=== PATIENT | male | born 1950 | race Caucasian/White ===

== ENCOUNTER 2021-01-26 09:16 | Inpatient (IN) | payer OTHER, MEDICARE ==
[~2021-01-26] VITALS: Ht 175.3 cm; Wt 71.7 kg
[2021-01-26 09:17] VITALS: BP 136/53
[2021-01-26 10:40] LABS: ABSOLUTE NEUTROPHILS 5.1 thou/uL (1.4-8.2); BASOPHILS 0.2 % (0.0-2.0); HEMATOCRIT 48.6 % (42.0-52.0); HEMOGLOBIN 16.4 gm/dL (14.0-18.0); LYMPHOCYTES 16.4 % (24.0-44.0); MCH 30.5 pg (26.0-34.0); MCHC 33.8 g/dL (28.0-37.0); MCV 90.4 fL (80.0-100.0); MONOCYTES 6.6 % (1.0-8.0); PLATELET COUNT 125 thou/uL (150-400); POLYS 76.8 % (36.0-66.0); RBC 5.38 mil/uL (4.50-6.00); RDW 12.7 % (10.5-14.5); WBC 6.7 thou/uL (4.0-11.0)
[2021-01-26 10:45] LABS: CALCIUM 8.4 mg/dL (8.5-10.1); CREATININE 1.1 mg/dL (0.7-1.3); POTASSIUM 4.2 mmol/L (3.5-5.1)
[2021-01-26 10:51] LABS: ALBUMIN 3.2 g/dL (3.4-5.0); TOTAL BILIRUBIN 0.6 mg/dL (0.2-1.0); TOTAL PROTEIN 6.5 g/dL (6.4-8.2)
[2021-01-26 12:35] VITALS: BP 138/66
[2021-01-26 13:10] LABS: BE(vivo) 2.7 mmol/L (-2 to +3); HCO3 24.7 mmol/L (22.0-26.0); PCO2 31.4 mmHg (35.0-45.0); PO2 74.9 mmHg (80.0-100.0); pH 7.513 (7.360-7.450); sO2 96.3 % (92.0-98.0)
--- NOTE | 2021-01-26 13:52 | EKG ---
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
[2021-01-26 21:59] VITALS: BP 132/68
[2021-01-26 22:30] VITALS: BP 126/64
[2021-01-26] MEDS ORDERED: CARTIA XT240 M1 PO (23:14)
[2021-01-26] MEDS ORDERED: PROTONIX 20 MG20 MG PO (23:15)
[2021-01-26] MEDS ORDERED: CLARITIN10 M2 PO (23:15)
[2021-01-26] MEDS ORDERED: ZETIA10 MG (23:16)
[2021-01-27 03:24] VITALS: BP 114/101
[2021-01-27 05:29] LABS: ABSOLUTE NEUTROPHILS 3.4 thou/uL (1.4-8.2); BASOPHILS 0.4 % (0.0-2.0); HEMATOCRIT 48.5 % (42.0-52.0); HEMOGLOBIN 16.9 gm/dL (14.0-18.0); LYMPHOCYTES 22.2 % (24.0-44.0); MCH 30.7 pg (26.0-34.0); MCHC 34.7 g/dL (28.0-37.0); MCV 88.5 fL (80.0-100.0); PLATELET COUNT 124 thou/uL (150-400); POLYS 70.4 % (36.0-66.0); RBC 5.48 mil/uL (4.50-6.00); RDW 12.6 % (10.5-14.5); WBC 4.8 thou/uL (4.0-11.0)
[2021-01-27 05:51] LABS: ALBUMIN 2.8 g/dL (3.4-5.0); CALCIUM 8.3 mg/dL (8.5-10.1); CREATININE 0.9 mg/dL (0.7-1.3); MAGNESIUM 2.4 mg/dL (1.8-2.4); POTASSIUM 3.5 mmol/L (3.5-5.1); TOTAL BILIRUBIN 0.4 mg/dL (0.2-1.0); TOTAL PROTEIN 6.9 g/dL (6.4-8.2)
[2021-01-27 07:46] VITALS: BP 130/82
[2021-01-27 15:57] VITALS: BP 136/78
[2021-01-27 20:54] VITALS: BP 149/81
[2021-01-28 04:07] VITALS: BP 126/79
--- NOTE | 2021-01-28 04:58 | HC ---
[facility] [place] [address] CONSULTATION Name: STEPH OLEARY Room #: 357-P ADM IN M.R.#: [id number] Admission: 01/26/21 Attend Phys: Marcelino South MD Discharge: Date of : 52 Report #: [id number] THIS REPORT FOR: cc: FAM - Family physician unknown FAM - Family physician unknown Scott Ogden MD ~ DATE OF SERVICE: 01/27/2021 Infectious Disease Consultation ATTENDING PHYSICIAN: Dr. Marcelino South. REASON FOR EVALUATION: COVID-19 infection, complicated by pneumonitis and respiratory failure. HISTORY OF PRESENT ILLNESS: The patient examined. This is a 70-year-old gentleman with history of atrial fibrillation, otherwise reasonably healthy, who actually came to visit his father from [place], who was diagnosed with COVID. He became more dyspneic over the last two days prior to his admission. He noted associated cough that was essentially nonproductive. He denies significant systemic illness as fevers, chills. He did have a diminished appetite. Had some mild GI related complaints with nausea, although no emesis. He was evaluated in the emergency room, was confirmed to have positive COVID test. Chest x-ray, patchy infiltrates. Lactic acid 1.7. ABGs: pH 7.513, pCO2 of 31.4, pO2 of 74.9 on 4 liters. Blood cultures collected at time of admission are sterile thus far. He was empirically started on therapy with azithromycin, ceftriaxone and remdesivir in addition to corticosteroids. ALLERGIES: None known. MEDICATIONS: Include ceftriaxone, ascorbic acid, famotidine, budesonide, thiamine, zinc sulfate, cholecalciferol, methylprednisolone, remdesivir, azithromycin, and ceftriaxone. PAST MEDICAL HISTORY: Atrial fibrillation and high cholesterol. SOCIAL HISTORY: Former smoker, occasional ethanol. No illicit drug use. FAMILY HISTORY: Noncontributory. REVIEW OF SYSTEMS: Otherwise, unremarkable. PHYSICAL EXAMINATION: GENERAL: He is alert, cooperative. He is in [id number]-th-zhijkfvt distress. He is generally lucid. VITAL SIGNS: Temperature 98.6, pulse 83, respirations 18, blood pressure [facility] [address] [place] [address] CONSULTATION Name: STEPH OLEARY Room #: 357-P [facility] IN M.R.#: [id number] Admission: 01/26/21 Attend Phys: Marcelino South MD Discharge: Date of : 52 Report #: [id number] 130/82. SKIN: Warm, dry. No rashes. HEENT: Normocephalic. Extraocular muscles intact. Nasal cannula in place. NECK: LUNGS: Scattered coarse breath sounds. HEART: Irregular, do not appreciate a murmur. ABDOMEN: Soft, nontender. EXTREMITIES: No cyanosis. GENITOURINARY AND RECTAL: Deferred. LABORATORY DATA: As described above. Electrolytes: Sodium 145, potassium 3.5, chloride 106, bicarbonate is 26, anion gap of 13, BUN and creatinine 25 and 0.9, glucose of 148, AST 44, ALT of 45. Albumin 2.8, total protein 6.9. Estimated GFR of 84. CBC: White count 4.8, H and H 16.9 and 48.5, platelets of 124. Lactic acid 1.7. ABGs: pH 7.513, pCO2 of 31.4, pO2 of 74.9 on 4 liters. ASSESSMENT AND PLAN: Coronavirus infection, complicated by pneumonitis and respiratory failure. PLAN: We will continue current approach. We will add ivermectin. I think we will hold off on Actemra at this point. Continue remdesivir and corticosteroids. Prefer ceftriaxone or azithromycin. We will continue that and see how he does clinically. <ELECTRONICALLY SIGNED> By: Scott Ogden MD 01/28/21 0458 [id number] 1131 Scott Ogden MD /nt
[2021-01-28 07:22] VITALS: BP 138/80
[2021-01-28 15:29] VITALS: BP 134/70
[2021-01-28 19:15] VITALS: BP 135/73
[2021-01-29 06:00] VITALS: BP 134/84
[2021-01-29 08:00] VITALS: BP 133/74
[2021-01-29 11:29] LABS: ABSOLUTE NEUTROPHILS 8.1 thou/uL (1.4-8.2); BASOPHILS 0.5 % (0.0-2.0); MCH 29.9 pg (26.0-34.0); MCHC 33.1 g/dL (28.0-37.0); MCV 90.2 fL (80.0-100.0); POLYS 89.5 % (36.0-66.0); RDW 14.8 % (10.5-14.5)
[2021-01-29 11:55] LABS: HEMOGLOBIN 11.9 gm/dL (14.0-18.0); PLATELET COUNT 229 thou/uL (150-400)
[2021-01-29 12:41] LABS: ALBUMIN 2.4 g/dL (3.4-5.0); CALCIUM 7.8 mg/dL (8.5-10.1); CREATININE 0.8 mg/dL (0.7-1.3); POTASSIUM 3.2 mmol/L (3.5-5.1); TOTAL BILIRUBIN 0.6 mg/dL (0.2-1.0); TOTAL PROTEIN 5.9 g/dL (6.4-8.2)
[2021-01-29 12:44] LABS: BE(vivo) 4.4 mmol/L (-2 to +3); PCO2 30.7 mmHg (35.0-45.0); PO2 63.7 mmHg (80.0-100.0); pH 7.545 (7.360-7.450); sO2 94.9 % (92.0-98.0)
[2021-01-29 16:42] VITALS: BP 131/84
[2021-01-29 19:27] VITALS: BP 137/74
[2021-01-30 05:13] VITALS: BP 142/79
[2021-01-30 05:47] LABS: ALBUMIN 2.4 g/dL (3.4-5.0); CALCIUM 7.4 mg/dL (8.5-10.1); CREATININE 0.8 mg/dL (0.7-1.3); DIRECT BILIRUBIN 0.2 mg/dL (<0.1-0.2); POTASSIUM 3.6 mmol/L (3.5-5.1); TOTAL BILIRUBIN 0.5 mg/dL (0.2-1.0); TOTAL PROTEIN 5.7 g/dL (6.4-8.2)
[2021-01-30 07:11] VITALS: BP 148/80
[2021-01-30 15:20] VITALS: BP 149/83
[2021-01-30 16:06] LABS: HIV ANTIBODY Non Reactive (Non Reactive)
[2021-01-30 16:40] LABS: BE(vivo) 4.2 mmol/L (-2 to +3); HCO3 25.5 mmol/L (22.0-26.0); PCO2 29.5 mmHg (35.0-45.0); PO2 56.6 mmHg (80.0-100.0); pH 7.554 (7.360-7.450); sO2 93.2 % (92.0-98.0)
[2021-01-30 19:30] VITALS: BP 161/87
[2021-01-31 03:55] VITALS: BP 156/90
[2021-01-31 07:36] VITALS: BP 149/91
[2021-01-31 15:32] VITALS: BP 156/85
[2021-01-31 19:22] VITALS: BP 152/78
[2021-02-01 04:08] VITALS: BP 130/71
[2021-02-01 07:38] VITALS: BP 141/93
[2021-02-01 11:58] VITALS: BP 144/83
[2021-02-01 18:15] VITALS: BP 144/82
[2021-02-01 19:30] VITALS: BP 151/92
[2021-02-02 03:30] VITALS: BP 140/79
[2021-02-02 07:08] VITALS: BP 154/96
[2021-02-02 11:12] VITALS: BP 136/79
[2021-02-02 15:08] VITALS: BP 131/83
[2021-02-02 21:03] VITALS: BP 143/83
[2021-02-03 04:52] VITALS: BP 147/97
[2021-02-03 07:13] VITALS: BP 129/86
[2021-02-03 15:16] VITALS: BP 131/79
[2021-02-03 21:05] VITALS: BP 135/90
[2021-02-04 03:55] VITALS: BP 157/93
[2021-02-04 05:17] LABS: HEMATOCRIT 43.6 % (42.0-52.0); HEMOGLOBIN 14.8 gm/dL (14.0-18.0); MCH 30.6 pg (26.0-34.0); PLATELET COUNT 341 thou/uL (150-400); RBC 4.84 mil/uL (4.50-6.00); RDW 12.5 % (10.5-14.5); WBC 14.7 thou/uL (4.0-11.0)
[2021-02-04 06:19] LABS: ALBUMIN 2.5 g/dL (3.4-5.0); CALCIUM 7.8 mg/dL (8.5-10.1); CREATININE 0.9 mg/dL (0.7-1.3); MAGNESIUM 2.4 mg/dL (1.8-2.4); PHOSPHORUS 4.5 mg/dL (2.5-4.9); POTASSIUM 4.7 mmol/L (3.5-5.1); TOTAL BILIRUBIN 0.7 mg/dL (0.2-1.0); TOTAL PROTEIN 5.4 g/dL (6.4-8.2)
[2021-02-04 07:19] LABS: ABSOLUTE NEUTROPHILS 13.4 thou/uL (1.4-8.2); PLATELET ESTIMATE NORMAL
[2021-02-04 08:00] VITALS: BP 126/83
[2021-02-04 12:34] VITALS: BP 130/83
[2021-02-04 19:16] VITALS: BP 121/79
[2021-02-05 04:42] VITALS: BP 140/80
[2021-02-05 07:14] VITALS: BP 136/87
--- NOTE | 2021-02-05 07:27 | EKG ---
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: : 1950 Requested By: Sophie Diaz Order Number: [id number] MD: Goldy Mendoza Measurements Intervals [place] Rate: 76 P: 41 OR: 127 QRS: -63 QRSD: 95 T: 1 QT: 378 QTc: 426 Interpretive Statements Sinus rhythm RSR' in V1 or V2, right VCD or RVH Borderline T abnormalities, inferior leads Compared to ECG 01/26/2021 09:27:32 Right ventricular hypertrophy now present RSR' in V1 or V2 now present T-wave abnormality now present Electronically Signed On 02-05-2021 7:27:26 CDT by Goldy Mendoza [email or web address] <ELECTRONICALLY SIGNED> By: Goldy Mendoza MD, [facility] 02/05/21 0727 1129 1129 Goldy Mendoza MD, [facility] /EPI
[2021-02-05 15:21] VITALS: BP 138/97
[2021-02-05 19:30] VITALS: BP 146/91
[2021-02-06 03:54] VITALS: BP 124/87
[2021-02-06 08:01] VITALS: BP 136/84
[2021-02-06 15:15] VITALS: BP 143/87
[2021-02-06 19:40] VITALS: BP 142/83
[2021-02-07 04:44] VITALS: BP 134/82
[2021-02-07 07:17] VITALS: BP 130/79
[2021-02-07 16:45] VITALS: BP 150/74
[2021-02-07 19:20] VITALS: BP 134/72
[2021-02-08 05:07] VITALS: BP 128/102
[2021-02-08 08:01] VITALS: BP 134/88
[2021-02-08] MEDS ORDERED: PREDNISONE 20 M20 M1 PO (14:05)
[2021-02-08] MEDS ORDERED: VITAMIN C500 M1 PO (14:05)
[2021-02-08] MEDS ORDERED: CALCIUM 500 +1 EAC4 PO (14:05)
[2021-02-08] MEDS ORDERED: DEEP SEA NASAL44 M1 NASAL (14:05)
[2021-02-08] MEDS ORDERED: COMBIVENT RESPIM4 GM INH (14:05)
[2021-02-08] MEDS ORDERED: VITAMIN B-1100 M2 PO (14:05)
[2021-02-08] MEDS ORDERED: ZINC SULFATE50 MG PO (14:05)
[2021-02-08 14:34] VITALS: BP 134/88
== END 2021-02-08 18:55 | disposition home health service (06) | DRG 871 ==
LOC: ER 09:16 → EROBS 11:55 → 3W 11:55
PROVIDERS: Emergency Medicine; Internal Medicine; Nurse Practitioner; Specialist; ADMIT Internal Medicine; ATTEND Internal Medicine
PROC: XW033E5 Introduction of Remdesivir Anti-infective into Peripheral Vein, Percutaneous Approach, New Technology Group 5 (ICD-10-PCS; principal; 2021-01-26)
PROC: 5A0935A Assistance with Respiratory Ventilation, Less than 24 Consecutive Hours, High Flow/Velocity Cannula (ICD-10-PCS; 2021-01-29)
PROC: 5A0935A Assistance with Respiratory Ventilation, Less than 24 Consecutive Hours, High Flow/Velocity Cannula (ICD-10-PCS; 2021-01-30)
PROC: 5A09357 Assistance with Respiratory Ventilation, Less than 24 Consecutive Hours, Continuous Positive Airway Pressure (ICD-10-PCS; 2021-01-30)
PROC: 5A0935A Assistance with Respiratory Ventilation, Less than 24 Consecutive Hours, High Flow/Velocity Cannula (ICD-10-PCS; 2021-01-31)
PROC: 5A0935A Assistance with Respiratory Ventilation, Less than 24 Consecutive Hours, High Flow/Velocity Cannula (ICD-10-PCS; 2021-02-01)
PROC: 5A0935A Assistance with Respiratory Ventilation, Less than 24 Consecutive Hours, High Flow/Velocity Cannula (ICD-10-PCS; 2021-02-02)
PROC: 5A0935A Assistance with Respiratory Ventilation, Less than 24 Consecutive Hours, High Flow/Velocity Cannula (ICD-10-PCS; 2021-02-03)
PROC: 5A0935A Assistance with Respiratory Ventilation, Less than 24 Consecutive Hours, High Flow/Velocity Cannula (ICD-10-PCS; 2021-02-04)
PROC: 5A0935A Assistance with Respiratory Ventilation, Less than 24 Consecutive Hours, High Flow/Velocity Cannula (ICD-10-PCS; 2021-02-05)
PROC: 5A0935A Assistance with Respiratory Ventilation, Less than 24 Consecutive Hours, High Flow/Velocity Cannula (ICD-10-PCS; 2021-02-06)
PROC: 5A0935A Assistance with Respiratory Ventilation, Less than 24 Consecutive Hours, High Flow/Velocity Cannula (ICD-10-PCS; 2021-02-07)
PROC: 5A0935A Assistance with Respiratory Ventilation, Less than 24 Consecutive Hours, High Flow/Velocity Cannula (ICD-10-PCS; 2021-02-08)
DX: A41.89 Other specified sepsis (principal); J12.82 Pneumonia due to coronavirus disease 2019; J96.01 Acute respiratory failure with hypoxia; U07.1 COVID-19; J44.1 Chronic obstructive pulmonary disease with (acute) exacerbation; E78.00 Pure hypercholesterolemia, unspecified; E66.9 Obesity, unspecified; I25.10 Atherosclerotic heart disease of native coronary artery without angina pectoris; R53.81 Other malaise; I48.0 Paroxysmal atrial fibrillation; G89.29 Other chronic pain; Z87.891 Personal history of nicotine dependence; Z68.23 Body mass index [BMI] 23.0-23.9, adult; Z71.6 Tobacco abuse counseling; Z79.899 Other long term (current) drug therapy
CPT/HCPCS: 10879